=== PATIENT | female | born 1975 ===

== ENCOUNTER → 2021-05-19 | Outpatient (CLI) | payer OTHER ==
--- NOTE | 2021-05-19 14:24 | RAD ---
PROCEDURE: US BREAST LTD CHAPARRITA, MG 2D BILAT SCREENING HISTORY: The patient is 46 years old and is seen for Reason: BILAT BREAST LUMPS / Spl. Instructions: / History: . COMPARISON: None. TECHNIQUE: CC and MLO views of both breasts were obtained. Images were processed by the [employer] computer-aided detection system. DENSITY: The breast parenchyma is heterogeneously dense. This may lower the sensitivity of mammograph y. FINDINGS: Right mammogram: No developing mass, suspicious calcifications or architectural distortion. Right ultrasound: No ultrasound evidence of abnormality within the region of the patient's palpable c oncern 4:00 position 5 cm from the nipple approximately. Mild ductal dilatation. No pathologic lympha denopathy. Left mammogram: No developing mass, suspicious calcifications or architectural distortion. Left ultrasound: Mild ductal dilatation. Small left breast cyst at the 8:00 position 4 cm from the ni pple measures 0.2 x 0.2 cm. No ultrasound evidence of abnormality within the region of the patient's palpable concern. No pathologic lymphadenopathy. IMPRESSION: 1. No mammographic or ultrasound evidence of abnormality to correspond with patient's palpable connor rn. Recommend continued clinical follow-up. Recommend annual screening mammograms. 2. Small left breast cyst. 3. Mild retroareolar ductal dilatation. Recommend annual screening mammograms per [employer] guidelines. She will be due in one year. BI-RADS category 2 Benign Patient entered into a reminder system for annual screening mammogram. Electronically signed by: Rei Cerda DO (05/19/2021 2:22 PM) [id number]
== END ==
LOC: MAMMO 13:12
PROVIDERS: ATTEND Preventive Medicine Occupational Medicine
DX: Z12.31 Encounter for screening mammogram for malignant neoplasm of breast (principal); N60.02 Solitary cyst of left breast
CPT/HCPCS: 77067; 76642-50